=== PATIENT | male | born 2000 ===

== ENCOUNTER 2022-08-22 14:46 | Emergency (ER) | payer OTHER ==
[~2022-08-22] VITALS: Ht 177.8 cm; Wt 86.2 kg
== END 2022-08-22 17:50 | disposition home or self-care (01) ==
LOC: EMR PED 14:46
DX: U07.1 COVID-19 (principal); H66.91 Otitis media, unspecified, right ear

== ENCOUNTER 2024-09-09 07:43 | Outpatient (CLI) | payer OTHER | END 2024-09-09 07:54 | disposition home or self-care (01) | LOC: SONOGRAMA 07:43 | PROVIDERS: ATTEND General Practice | DX: R10.9 Unspecified abdominal pain (principal) ==